=== PATIENT | male | born 1950 | race Caucasian/White ===

== ENCOUNTER 2017-10-13 17:42 | Inpatient (IN) | payer MEDICARE ==
[~2017-10-13] VITALS: Ht 182.9 cm; Wt 93.6 kg
[~2017-10-13 17:42] MED LIST: AGGRENOX ER 251 CER PO; NEXIUM 40MG40 MG PO; NORCO 325 MG-101 TAB PO; VALIUM 10MG10 MG/TAB PO
[2017-10-15] MEDS ORDERED: NICODERM C21 MG/PATC TD (16:22)
[2017-10-15] MEDS ORDERED: LIPITOR 40MG TA40 MG PO (16:23)
[2017-10-15] MEDS ORDERED: CELEBREX 200MG200 MG PO (16:23)
[2017-10-15] MEDS ORDERED: CLEOCIN HCL300 MG PO (16:23)
[2017-10-15] MEDS ORDERED: ASPI325T6 PO (16:24)
[2017-10-15] MEDS ORDERED: SEROQUEL 2525 MG/TAB PO (16:24)
[2017-10-15] MEDS ORDERED: TYLENOL 325MG325 MG PO (16:24)
[2017-10-15] MEDS ORDERED: LOPRESSOR 225 MG/TAB PO (16:24)
[2017-10-15] MEDS ORDERED: VALIUM 10MG10 MG/TAB PO (16:25)
[2017-10-15] MEDS ORDERED: PROTONIX 40MG T40 MG PO (16:25)
[2017-10-15 22:28] VITALS: BP 151/44; PULSE 91; TEMP 98.2
[2017-10-16] MEDS ORDERED: SENOKOT8.6 MG PO (00:13)
[2017-10-16] MEDS ORDERED: ROXICODONE 55 MG/TAB PO (00:15)
[2017-10-16] MEDS ORDERED: DULCOLAX S10 MG/SUPP RC (00:18)
[2017-10-16] MEDS ORDERED: NORCO 325 MG-51 TAB PO (00:20)
[2017-10-16 06:19] VITALS: BP 148/59; PULSE 76; TEMP 96.8
[2017-10-16 15:53] VITALS: BP 161/78; PULSE 83; TEMP 98.5
[2017-10-17 05:31] VITALS: BP 157/63; PULSE 77; TEMP 97.7
[2017-10-17 15:25] VITALS: BP 147/59; PULSE 85; TEMP 97.9
[2017-10-18 06:17] VITALS: BP 159/97; PULSE 72; TEMP 98.3
[2017-10-18 16:31] VITALS: BP 129/67; PULSE 80; TEMP 98.2
[2017-10-19 03:27] VITALS: BP 153/79; PULSE 70; TEMP 98.3
[2017-10-19 17:24] VITALS: BP 168/67; PULSE 72; TEMP 97.8
[2017-10-20 05:08] VITALS: BP 168/86; PULSE 77; TEMP 97.2
[2017-10-20] MEDS ORDERED: FLOMAX 0.40.4 MG/CAP PO (12:49)
[2017-10-20] MEDS ORDERED: NORCO 325 MG-7.1 TAB PO (12:53)
[2017-10-20] MEDS ORDERED: VALIUM 10MG10 MG/TAB PO (12:59)
== END 2017-10-20 14:45 | disposition home or self-care (01) | DRG 560 ==
DX: S72.001D Fracture of unspecified part of neck of right femur, subsequent encounter for closed fracture with routine healing (principal); F05 Delirium due to known physiological condition; W18.30XD Fall on same level, unspecified, subsequent encounter; I10 Essential (primary) hypertension; I25.10 Atherosclerotic heart disease of native coronary artery without angina pectoris; J44.9 Chronic obstructive pulmonary disease, unspecified; F17.210 Nicotine dependence, cigarettes, uncomplicated; Z95.0 Presence of cardiac pacemaker; Z95.1 Presence of aortocoronary bypass graft; F03.90 Unspecified dementia, unspecified severity, without behavioral disturbance, psychotic disturbance, mood disturbance, and anxiety; F41.1 Generalized anxiety disorder; G89.29 Other chronic pain
CPT/HCPCS: 99222-AI; 99232-AI; 99233-AI; 99239